=== PATIENT | male | born 1990 | race Caucasian/White ===

== ENCOUNTER 2018-08-16 11:57 | Emergency (ER) | payer OTHER, MEDICAID ==
[2018-08-16] MEDS ORDERED: IBUPROFEN 600 MG TABLET PO ONE (12:42)
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
[2018-08-16 14:18] VITALS: BP 123/83
== END 2018-08-16 14:18 | disposition home or self-care (01) ==
LOC: ER 11:57
DX: S16.1XXA Strain of muscle, fascia and tendon at neck level, initial encounter (principal); R03.0 Elevated blood-pressure reading, without diagnosis of hypertension; V43.52XA Car driver injured in collision with other type car in traffic accident, initial encounter; Z88.3 Allergy status to other anti-infective agents
CPT/HCPCS: 72050; 99283

== ENCOUNTER 2019-10-17 20:17 | Emergency (ER) | payer MEDICAID ==
[2019-10-17 20:22] VITALS: BP 134/83
[2019-10-17 22:43] LABS: ABSOLUTE LYMPHOCYTES (AUTO) 1.8 10^3/uL (0.5-4.7); ABSOLUTE MONOCYTES (AUTO) 0.8 10^3/uL (0.1-1.4); ABSOLUTE NEUT (AUTO) 15.8 10^3/uL (1.7-8.2); BASOPHILS % (AUTO) 0.2 % (0-2); EOSINOPHILS % (AUTO) 0.3 % (0-6); HEMOGLOBIN 16.8 g/dL (13.5-17.0); LYMPHOCYTES % (AUTO) 9.6 % (13-45); MEAN CORPUSCULAR HGB CONC 34.2 g/dL (32.0-36.0); MEAN CORPUSCULAR VOLUME 88 fl (80-97); MONOCYTES % (AUTO) 4.4 % (3-13); PLATELET COUNT 290 10^3/uL (150-450); RED CELL DISTRIBUTION WIDTH 13.2 % (11.5-14.0); SEGMENTED NEUTROPHILS % (AUTO) 85.5 % (42-78); TOTAL CELLS COUNTED % (AUTO) 100 %; WHITE BLOOD COUNT 18.5 10^3/uL (4.0-10.5)
[2019-10-17 22:45] LABS: APPEARANCE,URINE SLIGHTLY-CLOUDY; BILIRUBIN,URINE NEGATIVE (NEGATIVE); COLOR,URINE YELLOW; GLUCOSE, URINE NEGATIVE (NEGATIVE); KETONES,URINE TRACE mg/dL (NEGATIVE); LEUKOCYTE ESTERASE,URINE NEGATIVE (NEGATIVE); NITRITE,URINE NEGATIVE (NEGATIVE); PROTEIN,URINE NEGATIVE (NEGATIVE); UROBILINOGEN,URINE NEGATIVE mg/dL (<2.0)
[2019-10-17 23:03] LABS: ALBUMIN 5.5 g/dL (3.5-5.0); ALKALINE PHOSPHATASE 62 U/L (38-126); ANION GAP 13 (5-19); ASPARTATE AMINO TRANSFERASE 29 U/L (17-59); BILIRUBIN,DIRECT 0.2 mg/dL (0.0-0.4); BILIRUBIN,TOTAL 0.9 mg/dL (0.2-1.3); BLOOD UREA NITROGEN 10 mg/dL (7-20); CALCIUM 10.7 mg/dL (8.4-10.2); CARBON DIOXIDE 29 mmol/L (22-30); CHLORIDE 98 mmol/L (98-107); GLUCOSE 96 mg/dL (75-110); POTASSIUM 4.1 mmol/L (3.6-5.0); TOTAL PROTEIN 8.8 g/dL (6.3-8.2)
== END 2019-10-17 23:10 | disposition left against medical advice (07) ==
LOC: ER 20:17
DX: Z53.21 Procedure and treatment not carried out due to patient leaving prior to being seen by health care provider (principal)
CPT/HCPCS: 36415; 80053; 81001; 85025

== ENCOUNTER 2019-10-18 09:41 | Day surgery (SDC) | payer MEDICAID, OTHER ==
[~2019-10-18 09:41] MED LIST: PROPOFOL INJ 200 MG/20 ML VIAL IV ONE
[2019-10-18 11:49] VITALS: BP 120/87
--- NOTE | 2019-10-18 12:42 | Operative Report ---
Operative Report DATE OF SURGERY: 10/18/19 Operative Report: The risk, benefits and alternatives of the procedure including the risk of bleeding, perforation requiring surgery have been explained to the patient in detail and informed consent has been obtained. Patient is taken back to the endoscopy suite and placed in a left, lateral decubital position. Timeout was called. Propofol medication is administered. Rectal examination is done which did not reveal any masses, tears or fissures. An Olympus videoscope was introduced into the patient's rectum. Scope was then carefully advanced all the way to the cecum. Cecum was identified by the usual anatomical landmarks including the ileocecal valve as well as the appendiceal office. Photodocumentation is obtained. Scope was then sequentially pulled back via the various segments of the colon including the ascending colon, hepatic flexure, transverse colon, splenic flexure, descending colon and finally into the rectosigmoid portions of the colon. Retroflexion maneuvers performed. The risks benefits and alternatives of the procedure explained to the patient in detail and informed consent is obtained.A GIF Olympus video scope was inserted into the patient's mouth and hypopharynx, the esophagus is identified intubated and insufflated ,the scope was then advanced through the esophagus stomach and duodenum, retroflexion maneuver is done ,the esophagus stomach and first and second portions of the duodenum examined PREOPERATIVE DIAGNOSIS: Left lower quadrant pain. Dyspepsia POSTOPERATIVE DIAGNOSIS: Nodular gastritis status post biopsy without Helicobacter pylori. Normal colonoscopy to cecum except for mild nonspecific inflammation on the right-hand side status post biopsy OPERATION: Colonoscopy with biopsy. EGD with biopsy SURGEON: KEELY KEYES ANESTHESIA: LMAC TISSUE REMOVED OR ALTERED: As noted above. COMPLICATIONS: None. ESTIMATED BLOOD LOSS: None. INTRAOPERATIVE FINDINGS: As noted above. PROCEDURE: Patient tolerated the procedure well. No immediate postprocedure complications are noted. Patient is discharged in good condition. Discharge date 10/18/2019. Discharge diet: Regular. Discharge activity: Regular. 2 to 3-week follow-up to discuss findings. Patient is instructed to call the office or proceed to the emergency room should there be any further problems or questions. Wait on the pathology.
== END 2019-10-18 11:53 | disposition home or self-care (01) ==
LOC: END 09:41
PROVIDERS: ATTEND Internal Medicine Gastroenterology
DX: K29.50 Unspecified chronic gastritis without bleeding (principal); K52.9 Noninfective gastroenteritis and colitis, unspecified
CPT/HCPCS: 43239; 45380; 88305 ×2; 00813; J2704; 813

== ENCOUNTER 2020-03-22 17:43 | Emergency (ER) | payer MEDICAID ==
[2020-03-22 18:08] VITALS: BP 127/79
[2020-03-22] MEDS ORDERED: AMOXICILLIN TR/POT CLAVULANATE 875-125 MG TAB PO ONE (18:09)
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
--- NOTE | 2020-03-22 18:49 | RADIOLOGY REPORT (SQ) ---
EXAM DESCRIPTION: FOREARM LEFT COMPLETED DATE/TIME: 03/22/2020 5:26 pm REASON FOR STUDY: dog bite COMPARISON: None. NUMBER OF VIEWS: Two views. TECHNIQUE: Two radiographic images acquired of the left forearm, including elbow and wrist in at [facility] one projection. LIMITATIONS: None. FINDINGS: MINERALIZATION: Normal. BONES: No acute fracture. No worrisome bone lesions. SOFT TISSUES: No obvious swelling or foreign body. OTHER: No other significant finding. IMPRESSION: NEGATIVE STUDY OF THE LEFT FOREARM. NO RADIOGRAPHIC EVIDENCE OF ACUTE INJURY. TECHNICAL DOCUMENTATION: JOB ID: [id number] 2010 [employer]- All Rights Reserved Reading location - IP/workstation name: [email or web address]
== END 2020-03-22 19:26 | disposition home or self-care (01) ==
LOC: ER 17:43
DX: S51.852A Open bite of left forearm, initial encounter (principal); W54.0XXA Bitten by dog, initial encounter; Y93.89 Activity, other specified; Y92.009 Unspecified place in unspecified non-institutional (private) residence as the place of occurrence of the external cause; Y99.0 Civilian activity done for income or pay; Z88.1 Allergy status to other antibiotic agents; Z88.7 Allergy status to serum and vaccine
CPT/HCPCS: 99283; 73090; J3490

== ENCOUNTER 2020-07-24 21:23 | Emergency (ER) | payer MEDICAID ==
[2020-07-24] MEDS ORDERED: ACETAMINOPHEN 325 MG TABLET PO ONE (21:40)
--- NOTE | 2020-07-24 21:44 | ER Document Report ---
ED Medical Screen (RME) - General Chief Complaint: Finger Injury Stated Complaint: INJURY TO FINGER Time Seen by Provider: 07/24/20 21:37 Primary Care Provider: PRADEEP DOMINGUEZ PA-C [Primary Care Provider] - Follow up as needed Mode of Arrival: Ambulatory Information source: Patient Notes: 29-year-old male presented to ED for complaint of pain and swelling to the left index finger. He states he was trying to disconnect a trailer from the truck when he smashed his left index finger between the trailer hitch and the ball. He states the pain is a 3 out of 5. He states it is dull and achy. He does have some mild swelling and bruising to the finger. We will get x-ray and treat him with ice and Tylenol at this time and he will be seen by another provider. I have greeted and performed a rapid initial assessment of this patient. A comprehensive ED assessment and evaluation of the patient, analysis of test results and completion of medical decision making process will be conducted by an additional ED providers. TRAVEL OUTSIDE OF THE [place] IN LAST 30 DAYS: No - Related Data Allergies/Adverse Reactions: ciprofloxacin [From Cipro] Allergy (Severe, Verified 03/22/20 18:08) Difficulty breathing Pertussis Vaccines Allergy (Verified 03/22/20 18:08) Past Medical History - Social History Chew tobacco use (# tins/day): No Frequency of alcohol use: None Drug Abuse: None Musculoskeltal Medical History: Reports Hx Musculoskeletal Trauma Traumatic Medical History: Reports: Hx Fractures - Immunizations Hx Diphtheria, Pertussis, Tetanus Vaccination: Yes - 2015 Physical Exam - Vital signs Vitals: Temp Pulse Resp BP Pulse Ox 98.1 F 71 17 142/83 H 100 07/24/20 21:43 07/24/20 21:43 07/24/20 21:43 07/24/20 21:43 07/24/20 21:43 Course - Vital Signs Vital signs: Temp Pulse Resp BP Pulse Ox 98.1 F 71 17 142/83 H 100 07/24/20 21:43 07/24/20 21:43 07/24/20 21:43 07/24/20 21:43 07/24/20 21:43 Doctor's Discharge - Discharge Referrals: PRADEEP DOMINGUEZ PA-C [Primary Care Provider] - Follow up as needed
--- NOTE | 2020-07-24 22:54 | RADIOLOGY REPORT (SQ) ---
EXAM DESCRIPTION: X-ray, three views of the left index finger. CLINICAL HISTORY: 29 years Male, pain and injury to left index finger COMPARISON: None. FINDINGS: Soft tissue swelling is present at the PIP joint. Alignment of the finger is anatomic. Bone mineralization is normal. No fractures seen. No erosions or periostitis. IMPRESSION: Soft tissue swelling. No fracture.
--- NOTE | 2020-07-25 01:27 | ER Document Report ---
HPI - HPI Patient complains to provider of: left finger injury Time Seen by Provider: 07/24/20 21:37 Pain Level: 2 Context: 29-year-old male presents to the emergency room after injuring his left index finger yesterday at home. States he was trying to change a trailer hitch when his finger got smashed between the trailer and the hitch. Patient states he tried to drain the blood from under the nail without relief. Is complaining to the distal aspect of his left index finger. No history of previous trauma or injury to his left finger. Tetanus is up-to-date. Patient is right-handed. Associated Symptoms: None Exacerbated by: Movement Relieved by: Remaining still Similar symptoms previously: No Recently seen / treated by doctor: No - ROS Systems Reviewed and Negative: Yes All other systems reviewed and negative - NEURO Neurology: DENIES: Weakness - REPRODUCTIVE Reproductive: REPORTS: : - MUSCULOSKELETAL Musculoskeletal: REPORTS: Extremity pain Past Medical History - General Information source: Patient - Social History Smoking Status: Never Smoker Chew tobacco use (# tins/day): No Frequency of alcohol use: None Drug Abuse: None Family History: Reviewed & Not Pertinent Musculoskeletal Medical History: Reports Hx Musculoskeletal Trauma Traumatic Medical History: Reports: Hx Fractures - Immunizations Hx Diphtheria, Pertussis, Tetanus Vaccination: Yes - 2016 [facility] Provider Document - CONSTITUTIONAL Agree With Documented VS: Yes Exam Limitations: No Limitations General Appearance: Mild Distress - INFECTION CONTROL TRAVEL OUTSIDE OF THE [place] IN LAST 30 DAYS: No - HEENT HEENT: Atraumatic, Normocephalic - NECK Neck: Normal Inspection, Supple, Thyroid Normal - RESPIRATORY Respiratory: Breath Sounds Normal, No Respiratory Distress - CARDIOVASCULAR Cardiovascular: Regular Rate, Regular Rhythm, No Murmur - MUSCULOSKELETAL/EXTREMETIES Musculoskeletal/Extremeties: FROM, Tender - Tenderness to the distal palmar aspect of the left index finger. Full range of motion without pain or difficulty. There is a small subungual hematoma noted to the medial aspect of the left index finger. There is a small puncture wound from where he attempted to drain the hematoma on his own. There is no active discharge or drainage noted at this time. - NEURO Level of Consciousness: Awake, Alert, Appropriate Motor/Sensory: No Motor Deficit, No Sensory Deficit Notes: Positive left radial pulse. Capillary refill less than 3 seconds. Full strength with flexion and extension of the left index finger. - DERM Integumentary: Warm, Dry, No Rash Course - Re-evaluation Re-evalutation: 07/25/20 01:24 Patient is resting comfortably with decreased pain. Reviewed x-ray results with patient and family. Counseled take Tylenol and or Motrin as needed for pain. Outpatient follow-up primary care physician if not improving in 2 to 3 days. Patient was given strict return to the emergency room guidelines. Return for any new or worsening symptoms. All questions were answered. Patient verbalized understanding and agrees with plan of care. - Vital Signs Vital signs: Temp Pulse Resp BP Pulse Ox 98.1 F 71 17 142/83 H 100 07/24/20 21:43 07/24/20 21:43 07/24/20 21:43 07/24/20 21:43 07/24/20 21:43 - Diagnostic Test Radiology reviewed: Reports reviewed Discharge - Discharge Clinical Impression: Subungual hematoma of left index finger Contusion of left index finger with damage to nail Qualifiers: Encounter type: initial encounter Qualified Code(s): S60.122A - Contusion of left index finger with damage to nail, initial encounter Condition: Stable Disposition: HOME, SELF-CARE Instructions: Contusion ([facility]), Subungual Hematoma ([facility]) Additional Instructions: Take Tylenol and/or Motrin as needed for pain. Do not attempt to drain the blood from under your nail it will resolve on its own. Follow-up with your primary care physician if not improving in 2 to 3 days. Return to the emergency room for any new or worsening symptoms. Referrals: PRADEEP DOMINGUEZ PA-C [Primary Care Provider] - Follow up as needed
[2020-07-25 01:40] VITALS: BP 140/78
== END 2020-07-25 02:04 | disposition home or self-care (01) ==
LOC: ER 21:23
DX: S60.122A Contusion of left index finger with damage to nail, initial encounter (principal); W23.0XXA Caught, crushed, jammed, or pinched between moving objects, initial encounter; Y93.89 Activity, other specified
CPT/HCPCS: 99283; 73140; J3490